=== PATIENT | female | born 1995 | race Caucasian/White ===

== ENCOUNTER 2018-11-28 01:21 | Outpatient (CLI) | payer SELFPAY ==
[~2018-11-28 01:21] MED LIST: NO HOME MEDS
== END 2018-11-28 23:59 | disposition home or self-care (01) ==
LOC: DIABETIC 01:21
PROVIDERS: ATTEND Surgery
DX: E66.01 Morbid (severe) obesity due to excess calories (principal); Z98.890 Other specified postprocedural states
CPT/HCPCS: 97802

== ENCOUNTER 2018-12-26 02:17 | Outpatient (CLI) | payer SELFPAY | END 2018-12-26 23:59 | disposition home or self-care (01) | LOC: DIABETIC 02:17 | PROVIDERS: ATTEND Surgery | DX: E66.01 Morbid (severe) obesity due to excess calories (principal) | CPT/HCPCS: 97802 ==

== ENCOUNTER 2023-02-09 09:45 | Emergency (ER) | payer MEDICAID ==
[~2023-02-09] VITALS: Ht 149.9 cm; Wt 90.4 kg
[2023-02-09 09:48] VITALS: BP 140/101
[2023-02-09] MEDS ORDERED: HYDR-3973 PO (09:56)
--- NOTE | 2023-02-09 10:04 | NUR ---
Pt in [facility], Pt c/o tooth pain x3 weeks. Lower R jaw constant sharp pain that radiates down and up her face. C/o 8/10 pain. Pt educated to POC. Pt in agreement. Pending providers eval and treatment.
== END 2023-02-09 10:23 | disposition home or self-care (01) ==
LOC: ER 09:46
DX: K04.7 Periapical abscess without sinus (principal); Z79.899 Other long term (current) drug therapy
CPT/HCPCS: 99283

== ENCOUNTER 2025-09-26 13:16 | Emergency (ER) | payer MEDICAID ==
[~2025-09-26] VITALS: Ht 149.9 cm; Wt 91.0 kg
[2025-09-26 13:36] VITALS: BP 119/75; PULSE 89; RESP 18; TEMP 99.1; O2SAT 97
[2025-09-26] MEDS ORDERED: ALBU8HFA INH (17:07)
--- NOTE | 2025-09-26 17:07 | Physician Documentation ---
History of Present Illness ~ Chief Complaint: Cold, cough & congestion Stated Complaint: FLU SYMPTOMS Time Seen by MD: 15:10 OK to notify your PCP?: Yes Primary Medical Doctor: Mario Salazar Source: patient Mode of Arrival: POV Exam Limitations: no limitations HPI Complains of cough and low-grade fever for the past 4 days. Denies any nausea, vomiting, diarrhea. Has some mild right ear pain. She endorses congestion and body aches with a some shortness of breath especially while coughing. No history of asthma. Medication Reconciliation Allergies: Coded Allergies: No Known Allergies (Unverified , 09/26/25) Scheduled PRN albuterol inhaler (Pro-Air Inhaler), 2 PUFFS INH Q4HPRN PRN for wheezing Miscellaneous Medications Home Med List (No Home Medications), (Reported) Past Medical History Past Medical History: No Pertinent History Past Surgical History: no surgical history Alcohol Use: None Drug Use: none Lives with: Family Lives In: Home Review of Systems All Other Systems at this time: Reviewed and Negative Physical Exam Vital Signs: RN Vital Signs have been reviewed: Yes, Temperature: 99.1, Source: Oral, Heart Rate: 89, Respiratory Rate: 18, BP: 119/75, Pulse Oximetry: 97, Weight: 91.000 Oxygen Flow Rate: 0 Pulse Oximetry Reflects: adequate oxygenation Physical Exam General: Alert, no apparent distress. HEENT: PERRL, EOMI, no injection, moist mucous membranes. Bilateral TM clear. Posterior pharynx erythema, tonsils 2+ bilaterally, uvula midline. Sinuses nontender bilaterally. Neck: Full range of motion. Mild anterior cervical lymphadenopathy. Respiratory: Lungs clear, no respiratory distress. Chest: No accessory muscle use. Cardiovascular: Regular rate and rhythm, no murmurs. Extremities: Normal range of motion, no deformity. Neurologic: Oriented x4. Psychiatric: Normal mood and affect. Skin: Normal color, warm and dry. No edema, no ecchymosis. Progress Results/Orders Reviewed/noted all lab results: Yes Results/Orders Vital Signs 09/26/25 13:36 Temp 99.1 Pulse 89 Resp 18 B/P (MAP) 119/75 Pulse Ox 97 O2 Flow Rate 0 Medical Decision Making Additional information obtaine: old records Findings Physical exam unremarkable some posterior pharynx erythema and some mild cervical lymphadenopathy. No signs of infection in ears and breath sounds are clear. She does have a cough which can cause some shortness of breath so I prescribed an albuterol inhaler to help. No signs of pneumonia. Vital signs are stable. Discharge instructions given to patient. Differential Dx:Considerations: Include: Allergic rhinitis, Influenza, Otitis media, Pneumonia, Pnuemonitis, Sinusitis Departure Disposition: HOME / SELF CARE / HOMELESS Impression: Primary Impression: Cough Additional Impression: Viral respiratory illness Condition: Stable Discharge Instructions: Cough, Adult Additional Instructions: As discussed you have a viral illness. Unfortunately there are no specific medications we can give you to make the illness and faster. Antibiotics do not work for viral illnesses. However, you can take acetaminophen or ibuprofen to help with fevers and pain. Stay well hydrated and rested. Return to the emergency department if your fevers and chills continue to worsen after 5 days, if you develop worsening cough with thick sputum, are unable to stay hydrated, or have any new or concerning concerning symptoms. Contact your primary care provider in the next 2-3 days for re-evaluation and to make sure your symptoms are improving. Please use the inhaler for your shortness of breath. Referrals: NO PRIMARY CARE PROVIDER (PCP) Prescriptions albuterol inhaler (Pro-Air Inhaler) 8.5 Gm Inhaler 2 PUFFS INH Q4HPRN PRN for wheezing for 30 Days, #18 GM Prov: ESTHER MITCHELL ASSOCIATE PROFESSOR OF GEOLOGY 09/26/25 Education Educated: Patient Educated regarding: diagnosis, treatment, prognosis, need for follow up Additional Comment Medical Screen Exam This patient recieved a medical screening examination. After reviewing the individual's medical complaints with presenting symptoms and performing an appropriate physical examination, it was determined that no immediate life- threatening emergency medical condition is present. This individual is also not a women having contractions. I have reviewed this case [id number] with the ASSOCIATE PROFESSOR OF GEOLOGY, including physical examination, laboratory and imaging results as appropriate. The patient was evaluated [id number] and I agree with the ASSOCIATE PROFESSOR OF GEOLOGY's notes. I agree with the findings, evaluation and disposition. Signature Scribe Signature: . Attestation: Scribed for Esther Mitchell Caterer'S Aide by Esther Carrillo NP . 09/26/25 17:08 Parts of this note were created using [employer] voice recognition software program. While efforts were made to correct any mistakes made by this voice recognition software program, nonsensical phrases may remain in this note. In addition, there may be errors and syntax, grammar, content and spelling. ESTHER MITCHELL Sep 26, 2025 17:07 SANFORD ARCHULETA MD Sep 26, 2025 18:35
== END 2025-09-26 17:12 | disposition home or self-care (01) ==
LOC: ER 13:17
DX: R05.9 Cough, unspecified (principal); B97.89 Other viral agents as the cause of diseases classified elsewhere; H92.01 Otalgia, right ear
CPT/HCPCS: 99283